=== PATIENT | female | born 1935 | race Caucasian/White ===

== ENCOUNTER 2017-07-27 13:45 | Inpatient (IN) | payer OTHER, SELFPAY ==
[~2017-07-27] VITALS: Ht 162.6 cm; Wt 72.6 kg
--- NOTE | ~2017-07-27 | P ---
[facility] [place] [address] PROCEDURE REPORT Name: JORDY NINO Room #: 445-P ADM IN M.R.#: [id number] Admission: 07/27/17 Attend Phys: Sandra Eid MD Discharge: Date of : 35 Report #: [id number] THIS REPORT FOR: //name// CC: Tye Eid MD DATE OF SERVICE: 08/01/2017 PROCEDURE PERFORMED: Upper endoscopy with biopsies and esophageal dilation. HISTORY OF PRESENT ILLNESS: The patient is an 81-year-old female with nausea, vomiting, intermittent dysphagia. CT scan of the abdomen showing possible duodenitis suggesting a partial gastric outlet obstruction. Plan is for EGD. The patient has been on aspirin on a daily basis. DESCRIPTION OF PROCEDURE: The risks and benefits of the procedure were explained to the patient, those risks including but not limited to bleeding, perforation, the risk of sedation. She understood these risks and gave informed consent. The patient underwent general anesthesia due to a possible gastric outlet obstruction. Next, using a standard [employer] upper endoscope, the scope was placed in the patient's mouth and advanced under direct vision through the esophagus, stomach and into the third and fourth portion of the duodenum. The upper and mid esophagus was normal in appearance. In the distal esophagus at the GE junction, grade B erosive esophagitis was noted. No obvious stricture was seen. There was minimal amount of fluid in the stomach. This was aspirated away. There was no food residual. There was a diffuse mild gastritis with several small ulcerations and erosions within the gastric body. No bleeding. Biopsies were obtained to rule out H. pylori. The pylorus was normal and patent. In the duodenal bulb, there were 2 ulcers, approximately 1 cm in size each. No active bleeding. There were multiple smaller ulcers within the first and second portion of the duodenum. I was able to advance the scope well into the third and even to the fourth portion of the duodenum, which was all normal. There was no evidence of obstruction or stricture within the duodenum. At this point, the scope was then brought back up into the patient's stomach and a Savary guidewire was inserted through the scope, leaving the guidewire in place. Next, a 48-Ugandan Savary dilation of the esophagus was then performed without difficulty. The wire and dilator removed. The scope was reintroduced into the patient's stomach. There was no evidence of mucosal tear after dilation. The scope was then withdrawn and the procedure terminated. The patient tolerated the procedure well. IMPRESSION: 1. Grade B erosive esophagitis. 2. Small gastric ulcers and gastritis. 3. Normal pylorus. [address] [address] PROCEDURE REPORT Name: JORDY NINO Room #: 445-P [facility] IN M.R.#: [id number] Admission: 07/27/17 Attend Phys: Sandra Eid MD Discharge: Date of : 35 Report #: [id number] 4. Duodenal bulb and first and second portion ulcerations. No active bleeding. No evidence of stricture or outlet obstruction. RECOMMENDATIONS: 1. Await biopsy results. 2. Observe status post dilation. 3. We will start daily PPI therapy as well as liquid Carafate at this time. 4. We will hold aspirin at this time. 5. Advance diet as tolerated. Thank you for allowing me to participate in her care. <ELECTRONICALLY SIGNED> By: Stewart Noland MD 08/01/17 1948 0950 1123 Stewart Noland MD /nt
--- NOTE | ~2017-07-27 | HC ---
[facility] [place] [address] CONSULTATION Name: JORDY NINO Room #: 445-P ADM IN M.R.#: [id number] Admission: 07/27/17 Attend Phys: Sandra Eid MD Discharge: Date of : 35 Report #: [id number] THIS REPORT FOR: //name// CC: Tye Eid HISTORY OF PRESENT ILLNESS: This 81-year-old female is admitted with pneumonia, fatigue and confusion. While here, she also complains of some chronic right hip pain. She has a history of previous right total hip arthroplasty and also history of previous lumbar spondylosis. I believe I performed a right total hip in about 2005. I believe I also performed at least 1 spinal decompression procedure, although I do not have those records for review. Apparently, she required some additional spinal decompression and stabilization at another time. I believe she has had hip surgery on the opposite side at some other time as well. At the time of my evaluation, she was accompanied by family including her son. I initially asked the patient about her current symptoms regarding the right hip. Rather immediately, her son took over the conversation and noted that he was quite angry with me with regard to her previous care. He felt she had ongoing pain following her previous surgeries and noted that I was unwilling to give her adequate narcotic medications. Consequently, he felt I was uncaring and arrogant with regard to her previous care and did not wish to continue our discussion or have me involved in any way with her care at this point. He asked me to leave the room immediately and consequently, I did not have any further opportunity to evaluate the patient nor discuss her symptoms. I note from the records that she has had x-rays of the right hip, which show satisfactory alignment and position of the total hip arthroplasty, but some suggestion of mild osteal lucency in the periacetabular region. There is no evidence of fracture. I see nothing in this brief evaluation, which would suggest significant loosening or displacement nor evidence of infection. Nevertheless, if she is having ongoing hip discomfort, evaluation for those potential problems would be appropriate. At this point, however, it is clear that the patient's family prefers to have evaluation and care by another surgeon and have asked me to leave and not be involved. If I can be of any further assistance in offering any suggestions or guidance, please do not hesitate to call me back, but at this point at the family's request, I will leave her case and will not be involved in her care. <ELECTRONICALLY SIGNED> By: Robinson Moore MD 07/30/17 0946 1641 1953 Robinson Moore MD /nt
--- NOTE | ~2017-07-27 | EKG ---
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 : 1935 Requested By: Jerson Cerda Order Number: [id number] MD: Flo Real Measurements Intervals [place] Rate: 102 P: 0 VT: 163 QRS: -92 QRSD: 135 T: 18 QT: 372 QTc: 485 Interpretive Statements Sinus tachycardia Atrial premature complex RBBB and LAFB Compared to ECG 10/23/2016 16:13:20 Atrial premature complex(es) now present Heart rate has increased Electronically Signed On 07-28-2017 8:38:44 [employer] OFFICER by Flo Real [email or web address] <ELECTRONICALLY SIGNED> By: Flo Real MD, [facility] 07/28/17 0838 1503 1503 Flo Real MD, [facility] /EPI
--- NOTE | ~2017-07-27 | S ---
[facility] [address] [address] [place] [address] SURGICAL PATH RPT PROCEDURE Name: JORDY NINO Room #: 445-P DIS IN M.R.#: [id number] Admission: 07/27/17 Date of : 35 Discharge: 08/01/17 Report #: [id number] Path Case #: [id number] PATHOLOGY REPORT COLLECTION DATE: 08/01/2017 RECEIVED DATE: 08/01/2017 SUBMITTING PHYS: Dr. Stewart Noland OTHER PHYS: Dr. Sandra Valera SPECIMEN(S) RECEIVED: A.Duodenal bx B.Bx of gastritis * * * * * * * * * * * * FINAL DIAGNOSIS: A. Small bowel mucosa, duodenum rule out celiac sprue, endoscopic biopsy: - No significant diagnostic abnormalities present. - Negative for villous blunting, or increase in intraepithelial lymphocytes. B. Gastric mucosa, gastritis, rule out H. pylori, endoscopic biopsy: - Moderate reactive gastropathy with focal metaplastic changes. - Negative for atrophy and no definitive intestinal metaplasia present. - Negative for Helicobacter pylori. (IUV:sofiya; 08/02/2017) COMMENT: Well-controlled Helicobacter pylori immunohistochemical stain performed on block A1 - Negative. PATHOLOGIST: Thuy Hector M.D. REPORT ELECTRONICALLY SIGNED BY: Thuy Hector M.D. DATE/TIME: 08/02/2017 15:41 * * * * * * * * * * * * GROSS PATHOLOGY: A. Received in formalin labeled "Amadeo Nino, biopsy of duodenum, rule out celiac sprue" and consists of 3 garvin mucosal biopsies measuring up to 0.4 cm in greatest dimension. The specimen is entirely submitted as A1. B. Received in formalin labeled "Amadeo Nino, BX, gastritis, rule out H. pylori" and consists of 3 garvin mucosal biopsies each averaging 0.3 cm. The specimen is entirely smooth. B1. (DEIRDRE; 08/01/2017) [address] [address] SURGICAL PATH RPT PROCEDURE Name: JORDY NINO Room #: 445-[facility] IN M.R.#: [id number] Admission: 07/27/17 Date of : 35 Discharge: 08/01/17 Report #: [id number] Path Case #: [id number] CLINICAL HISTORY: Dysphagia, gastritis, duodenal ulcer, gastric ulcers INITIAL CPT CODE(S): A; 99522 B; 61134, 37885 Professional services performed by [facility] at [address] , [place] [address] Technical services performed by [facility] at [address] [place] [address], [facility] [place] [address], [place] [address]. [facility] [address] [address] PHONE: [phone] DIRECTOR: Yair Billings M.D. * * * END OF REPORT * * *
--- NOTE | ~2017-07-27 | H ---
[facility] [place] [address] HISTORY AND PHYSICAL Name: JORDY NINO Room #: 445-P ADM IN M.R.#: [id number] Admission: 07/27/17 Attend Phys: Sandra Eid MD Discharge: Date of : 35 Report #: [id number] THIS REPORT FOR: //name// CC: Tye Eid DATE OF SERVICE: 07/27/2017 CHIEF COMPLAINT: Generalized weakness and shortness of breath. HISTORY OF PRESENT ILLNESS: The patient is an 81-year-old female with multiple medical problems, who has had cough, dizziness, shortness of breath, and myalgias during last few days. The patient's condition has been worsening lately, so she presented to the Emergency Room. In the Emergency Room, the patient had chest x-ray, that was negative for acute infiltrates. D-dimer was slightly elevated, that resulted in further evaluation. CT angiography showed right upper lobe infiltrate, but was negative for pulmonary embolism. The patient is being admitted for community-acquired pneumonia. PAST MEDICAL HISTORY: Chronic kidney disease stage 3, hypothyroidism, arthritis, status post bilateral hip replacement, history of CVA, history of colon cancer, history of uterine cancer, history of paroxysmal atrial fibrillation not on anticoagulation, diabetes mellitus type 2, hypertension, peripheral neuropathy, chronic back pain. CURRENT MEDICATIONS: Reviewed and documented in the patient's chart. In brief, the patient is on aspirin, iron sulfate, hydrocodone, levothyroxine, Norflex, Zocor, Janumet and VESIcare. FAMILY HISTORY: Reviewed and not pertinent to the patient's current condition. SOCIAL HISTORY: The patient does not smoke cigarettes and does not drink alcohol. REVIEW OF SYSTEMS: As above in HPI section, all others negative. PHYSICAL EXAMINATION: GENERAL: The patient is an elderly female who is in no apparent distress. She is alert and oriented x 3. VITAL SIGNS: Blood pressure is 136/100, heart rate is 103, respiration is 17, temperature is 98.1. HEENT: Pupils are equal. Eye movements are normal. The patient has anicteric sclerae. NECK: Supple. Thyromegaly is not appreciated. RESPIRATORY: Chest moves symmetrically with breathing. The patient has coarse respiratory sounds of the right upper lobe. Left lobe is slightly diminished. [address] [address] HISTORY AND PHYSICAL Name: JORDY NINO Room #: [address] [place] [address] IN M.R.#: [id number] Admission: 07/27/17 Attend Phys: Sandra Eid MD Discharge: Date of : 35 Report #: [id number] No wheezes appreciated. CARDIOVASCULAR: The patient has regular rhythm and rate. She has no murmurs, gallops or rubs. GASTROINTESTINAL: The patient has soft abdomen. She has no abdominal distention. Abdomen is nontender, with present bowel sounds. MUSCULOSKELETAL: There is no edema, cyanosis or clubbing. Joint deformities are not appreciated. NEUROLOGIC: The patient is alert and oriented x 3. Her examination is nonfocal. SKIN: Reveals no skin lesions. Skin is dry and warm. LABORATORY DATA: Basic metabolic profile, potassium is slightly high at 5.6. Other electrolytes are essentially normal. Creatinine is 1.4, which is at baseline. BUN is 40. GFR is 36. Troponin is normal. Liver function tests are normal. On CBC, white count is 5.6. Hemoglobin is 11.4, which is chronically low and at baseline. Hematocrit is 34.9. Platelets are normal. ASSESSMENT AND PLAN: 1. Community-acquired pneumonia, involving right upper lobe based on CT angiography of the chest. The patient is started on Rocephin and Zithromax, as well as breathing treatments and symptomatic treatment for cough. 2. Generalized weakness, muscle aches, and nausea, likely related to current illness. Will be treated symptomatically. Continue IV fluids. 3. Diabetes mellitus type 2. Discontinue metformin, as GFR is low, and close to 30. Start Tradjenta. Continue sliding scale insulin. 4. Hypothyroidism. Continue Synthroid, unchanged. 5. Deep venous thrombosis prophylaxis. Use subcutaneous Lovenox. 6. Code status. The patient is full code. <ELECTRONICALLY SIGNED> By: Sandra Eid MD 07/28/17 1604 1833 1844 Sandra Eid MD /nt
[~2017-07-27 13:45] MED LIST: ACETAMINOPHEN325 M1 PO; ADULT LOW DOSE81 MG PO; AMITIZA 24 MCG24 MC1 PO; ARTIFICIAL TEAR15 M6 OPHTHALMIC; ASA5UEC PO; ATIVAN1 MG PO; CICLOPIROX15 GM TP; CIPRO250 M1 PO; CIPROFLOXACIN500 M1 PO; COLACE 100 MG100 MG PO; DOCUPRENE100 MG; DOXYCYCLINE 10100 MG PO; GLIPIZIDE ER10 MG PO; GLUCOPHAGE XR500 MG PO; GLUMETZA500 PO; GUAIFEN-CODEIN120 ML PO; HYDROCODON-ACE1 EA11 PO; HYDROCODON-ACE1 EAC1 PO; HYDROCODON-ACE1 EACH PO; HYDROCODONE-AP1 EAC6 PO; IRON325 PO; JANUMET 50-1,01 EACH PO; JANUMET XR 1001 EACH PO; LASIX 40 MG TAB40 M2 PO; LEVOTHROID25 MCG PO; LEVOTHYROXIN0.025 MG PO; LISINOPRIL PO; LISINOPRIL20 MG PO; LISINOPRIL40 MG PO; LUNESTA2 MG PO; MEDROL4 MG PO; METFORMIN PO; MULTIVITAMINS PO; NAPROSYN500 MG PO; NASONEX17 GM NASAL; NORFLEX100 MG PO; PLAVIX 75 MG TA75 MG OR; ROBAXIN 750 MG750 M1; ROBAXIN 750 MG750 M1 PO; ULTRAM 50MG TAB50 MG PO; VENTOLIN HFA 1818 GM INH; VESICARE10 M1 PO; VITAMIN A10000 UNI3 PO; VITAMINC500 PO; ZESTORETIC 20-1 EAC3 PO; ZOCOR40 MG PO; ZOFRAN ODT4 MG PO
[2017-07-27 13:49] VITALS: BP 152/74
[2017-07-27 14:21] LABS: ABSOLUTE NEUTROPHILS 4.5 thou/uL (1.4-8.2); BASOPHILS 0.1 % (0.0-2.0); EOSINOPHILS 0.5 % (0.0-3.0); HEMATOCRIT 34.9 % (37.0-47.0); HEMOGLOBIN 11.4 gm/dL (12.0-15.0); LYMPHOCYTES 12.4 % (24.0-44.0); MCH 31.4 pg (26.0-34.0); MCHC 32.6 g/dL (28.0-37.0); MCV 96.2 fL (80.0-100.0); MONOCYTES 7.6 % (1.0-8.0); PLATELET COUNT 178 thou/uL (150-400); POLYS 79.4 % (36.0-66.0); RBC 3.63 mil/uL (4.20-5.00); RDW 14.3 % (10.5-14.5); WBC 5.6 thou/uL (4.0-11.0)
[2017-07-27 14:35] LABS: ANION GAP 10 mmol/L (7-16); BUN 40 mg/dL (7-18); CALCIUM 8.9 mg/dL (8.5-10.1); CHLORIDE 107 mmol/L (98-107); CO2 22 mmol/L (21-32); CREATININE 1.4 mg/dL (0.6-1.0); GLUCOSE 147 mg/dL (74-106); POTASSIUM 5.6 mmol/L (3.5-5.1); SODIUM 139 mmol/L (136-145)
[2017-07-27 14:37] LABS: TROPONIN-I < 0.04 ng/mL (<0.06)
[2017-07-27 15:48] LABS: APTT 32.4 Seconds (24.5-32.8); PROTIME 10.4 Seconds (9.3-11.4)
[2017-07-27 17:56] VITALS: BP 143/86
[2017-07-27 18:43] VITALS: BP 167/78
[2017-07-27 19:14] VITALS: BP 160/87
[2017-07-28 00:47] VITALS: BP 141/76
[2017-07-28 04:22] VITALS: BP 139/79
[2017-07-28 07:23] VITALS: BP 154/65
[2017-07-28 09:24] LABS: HEMATOCRIT 28.5 % (37.0-47.0); MCV 94.2 fL (80.0-100.0); PLATELET COUNT 163 thou/uL (150-400); RBC 3.03 mil/uL (4.20-5.00); RDW 13.9 % (10.5-14.5); WBC 5.6 thou/uL (4.0-11.0)
[2017-07-28 09:39] LABS: CALCIUM 8.3 mg/dL (8.5-10.1); CREATININE 1.1 mg/dL (0.6-1.0)
[2017-07-28 10:57] LABS: ABSOLUTE NEUTROPHILS 4.1 thou/uL (1.4-8.2); METAMYELOCYTES 1 %
[2017-07-28 10:58] LABS: ANISOCYTOSIS 1+; OVALOCYTES FEW
[2017-07-28 15:30] VITALS: BP 145/46
[2017-07-28 19:16] LABS: % SATURATION 39 % (20-39); ALBUMIN 2.4 g/dL (3.4-5.0); ANION GAP 12 mmol/L (7-16); BUN 29 mg/dL (7-18); CALCIUM 8.2 mg/dL (8.5-10.1); CHLORIDE 109 mmol/L (98-107); CHOLESTEROL 128 mg/dL (<200); CO2 23 mmol/L (21-32); CREATININE 1.2 mg/dL (0.6-1.0); GLUCOSE 151 mg/dL (74-106); HDL CHOLESTEROL 43 mg/dL (>40); IRON 68 ug/dL (50-170); LDL CHOLESTEROL 64 mg/dL (<100); POTASSIUM 4.6 mmol/L (3.5-5.1); SGOT 17 U/L (15-37); SGPT 17 U/L (30-65); SODIUM 144 mmol/L (136-145); TIBC 173 ug/dL (250-450); TOTAL BILIRUBIN 0.2 mg/dL (<0.1-1.0); TRIGLYCERIDE 105 mg/dL (<150); VLDL 21 mg/dL (<40)
[2017-07-28 19:40] VITALS: BP 159/88
[2017-07-28 19:47] LABS: TSH 0.646 uIU/mL (0.358-3.740)
[2017-07-29 01:09] LABS: GLYCOHEMOGLOBIN (HGB A1C) 6.2 % (4.8-5.6)
[2017-07-29 03:45] VITALS: BP 176/72
[2017-07-29 05:19] LABS: CALCIUM 8.5 mg/dL (8.5-10.1); CREATININE 1.1 mg/dL (0.6-1.0); POTASSIUM 4.5 mmol/L (3.5-5.1)
[2017-07-29 08:00] VITALS: BP 164/82
[2017-07-29 16:00] VITALS: BP 160/82
[2017-07-29 19:32] VITALS: BP 156/75
[2017-07-30 01:55] LABS: URINE BILIRUBIN NEGATIVE (Negative); URINE BLOOD TRACE (Negative); URINE CLARITY CLEAR; URINE COLOR YELLOW; URINE GLUCOSE-RANDOM* NEGATIVE (Negative); URINE KETONES 1+ (Negative); URINE LEUKOCYTES-REFLEX NEGATIVE (Negative); URINE NITRITE-REFLEX NEGATIVE (Negative); URINE PROTEIN (DIPSTICK) TRACE (Negative); URINE UROBILINOGEN 0.2 E.U./dl (0.2-1.0)
[2017-07-30 05:04] VITALS: BP 147/69
[2017-07-30 08:07] VITALS: BP 156/72
[2017-07-30 16:28] VITALS: BP 156/72
[2017-07-30 19:48] VITALS: BP 125/67
[2017-07-31 03:30] VITALS: BP 132/54
[2017-07-31 04:46] LABS: HEMOGLOBIN 9.4 gm/dL (12.0-15.0); MCH 31.5 pg (26.0-34.0); MCHC 33.4 g/dL (28.0-37.0); MCV 94.3 fL (80.0-100.0); PLATELET COUNT 202 thou/uL (150-400); RBC 2.97 mil/uL (4.20-5.00); RDW 14.1 % (10.5-14.5)
[2017-07-31 05:02] LABS: CALCIUM 8.3 mg/dL (8.5-10.1); POTASSIUM 3.8 mmol/L (3.5-5.1)
[2017-07-31 05:27] LABS: ABSOLUTE NEUTROPHILS 4.1 thou/uL (1.4-8.2); ANISOCYTOSIS SLIGHT; MYELOCYTES 2 %
[2017-07-31 07:39] VITALS: BP 164/84
[2017-07-31 15:56] VITALS: BP 141/62
[2017-07-31 19:17] VITALS: BP 161/72
[2017-08-01 04:25] VITALS: BP 171/65
[2017-08-01 06:32] LABS: HEMATOCRIT 29.4 % (37.0-47.0); HEMOGLOBIN 9.6 gm/dL (12.0-15.0); MCH 31.1 pg (26.0-34.0); MCHC 32.8 g/dL (28.0-37.0); MCV 94.8 fL (80.0-100.0); PLATELET COUNT 237 thou/uL (150-400); RDW 13.8 % (10.5-14.5); WBC 8.3 thou/uL (4.0-11.0)
[2017-08-01 06:37] LABS: CALCIUM 8.1 mg/dL (8.5-10.1); POTASSIUM 3.9 mmol/L (3.5-5.1)
[2017-08-01 08:00] VITALS: BP 169/75
[2017-08-01 08:02] LABS: ABSOLUTE NEUTROPHILS 6.9 thou/uL (1.4-8.2); ANISOCYTOSIS SLIGHT; METAMYELOCYTES 1 %; POIKILOCYTOSIS SLIGHT
[2017-08-01 14:34] VITALS: BP 169/75
[2017-08-01] MEDS ORDERED: AZITHROMYCIN 2250 MG PO (15:44)
== END 2017-08-01 19:49 | disposition home health service (06) | DRG 871 ==
LOC: ER 13:45 → 4S 17:16 → EROBS 17:16 → 4S 18:43
PROVIDERS: Emergency Medicine; Internal Medicine; Internal Medicine Endocrinology, Diabetes & Metabolism; Nurse Practitioner; Registered Nurse
PROC: 0DB98ZX Excision of Duodenum, Via Natural or Artificial Opening Endoscopic, Diagnostic (ICD-10-PCS; principal; 2017-08-01)
PROC: 0DB68ZX Excision of Stomach, Via Natural or Artificial Opening Endoscopic, Diagnostic (ICD-10-PCS; principal; 2017-08-01)
PROC: 0D758ZZ Dilation of Esophagus, Via Natural or Artificial Opening Endoscopic (ICD-10-PCS; principal; 2017-08-01)
DX: A41.9 Sepsis, unspecified organism (principal); J18.9 Pneumonia, unspecified organism; K22.10 Ulcer of esophagus without bleeding; K29.70 Gastritis, unspecified, without bleeding; E78.00 Pure hypercholesterolemia, unspecified; E11.22 Type 2 diabetes mellitus with diabetic chronic kidney disease; N18.3 Chronic kidney disease, stage 3 (moderate); M19.90 Unspecified osteoarthritis, unspecified site; I12.9 Hypertensive chronic kidney disease with stage 1 through stage 4 chronic kidney disease, or unspecified chronic kidney disease; I48.0 Paroxysmal atrial fibrillation; K21.0 Gastro-esophageal reflux disease with esophagitis; K31.84 Gastroparesis; E11.43 Type 2 diabetes mellitus with diabetic autonomic (poly)neuropathy; K29.80 Duodenitis without bleeding; K31.9 Disease of stomach and duodenum, unspecified; D50.9 Iron deficiency anemia, unspecified; K25.9 Gastric ulcer, unspecified as acute or chronic, without hemorrhage or perforation; M25.551 Pain in right hip; M54.9 Dorsalgia, unspecified; J40 Bronchitis, not specified as acute or chronic; G89.29 Other chronic pain; K26.9 Duodenal ulcer, unspecified as acute or chronic, without hemorrhage or perforation; E03.9 Hypothyroidism, unspecified; Z96.643 Presence of artificial hip joint, bilateral; Z86.73 Personal history of transient ischemic attack (TIA), and cerebral infarction without residual deficits; Z85.038 Personal history of other malignant neoplasm of large intestine; Z85.42 Personal history of malignant neoplasm of other parts of uterus; Z91.81 History of falling; Z85.3 Personal history of malignant neoplasm of breast; Z90.13 Acquired absence of bilateral breasts and nipples; Z90.49 Acquired absence of other specified parts of digestive tract; Z90.710 Acquired absence of both cervix and uterus; Z98.1 Arthrodesis status; Z79.82 Long term (current) use of aspirin; Z79.899 Other long term (current) drug therapy; Z88.2 Allergy status to sulfonamides; Z88.8 Allergy status to other drugs, medicaments and biological substances; Z91.048 Other nonmedicinal substance allergy status
CPT/HCPCS: 10100; 62110; 62900; 70005

== ENCOUNTER 2020-02-29 04:56 | Inpatient (IN) | payer OTHER ==
[2020-02-29] VITALS (42 sets, daily range): BP systolic 85–143; BP diastolic 30–72
[~2020-02-29] VITALS: Ht 157.5 cm; Wt 72.4 kg
[~2020-02-29 04:56] MED LIST changes: +AZITHROMYCIN 2250 MG PO; -HYDROCODONE-AP1 EAC6 PO; +NORCO 10-325 T1 EAC1 PO
[2020-02-29 05:33] LABS: ABSOLUTE NEUTROPHILS 6.1 thou/uL (1.4-8.2); BASOPHILS 0.3 % (0.0-2.0); EOSINOPHILS 2.2 % (0.0-3.0); HEMATOCRIT 32.3 % (37.0-47.0); HEMOGLOBIN 10.4 gm/dL (12.0-15.0); LYMPHOCYTES 11.5 % (24.0-44.0); MCH 33.3 pg (26.0-34.0); MCHC 32.1 g/dL (28.0-37.0); MCV 103.7 fL (80.0-100.0); MONOCYTES 11.5 % (1.0-8.0); PLATELET COUNT 223 thou/uL (150-400); POLYS 74.5 % (36.0-66.0); RBC 3.11 mil/uL (4.20-5.00); RDW 13.2 % (10.5-14.5); WBC 8.2 thou/uL (4.0-11.0)
[2020-02-29 05:46] LABS: ANION GAP 16 mmol/L (7-16); BUN 62 mg/dL (7-18); CALCIUM 8.8 mg/dL (8.5-10.1); CHLORIDE 110 mmol/L (98-107); CO2 14 mmol/L (21-32); CREATININE 3.7 mg/dL (0.6-1.0); GLUCOSE 185 mg/dL (74-106); POTASSIUM 5.5 mmol/L (3.5-5.1); SODIUM 140 mmol/L (136-145)
[2020-02-29 05:51] LABS: TROPONIN-I <0.06 ng/mL (<0.06)
[2020-02-29 05:54] LABS: BE(vivo) -15.4 mmol/L (-2 to +3); HCO3 12.8 mmol/L (22.0-26.0); PO2 189.2 mmHg (80.0-100.0); pH 7.134 (7.360-7.450); sO2 98.9 % (92.0-98.0)
[2020-02-29 06:23] LABS: URINE BILIRUBIN NEGATIVE (Negative); URINE BLOOD NEGATIVE (Negative); URINE COLOR YELLOW; URINE GLUCOSE-RANDOM* NEGATIVE (Negative); URINE KETONES NEGATIVE (Negative); URINE LEUKOCYTES-REFLEX TRACE (Negative); URINE NITRITE-REFLEX NEGATIVE (Negative); URINE PROTEIN (DIPSTICK) 1+ (Negative); URINE UROBILINOGEN 0.2 E.U./dl (0.2-1.0)
[2020-02-29 06:31] LABS: URINE CLARITY CLOUDY
--- NOTE | 2020-02-29 06:34 | NUR ---
no medication list available. talked with dpo adryan coppola, he does not know med list or allergies, he states that his sister in law would know but he does not have her number on hand, he will call back with number to his sister in law.
[2020-02-29 07:06] LABS: URINE WBC-REFLEX 6-15 Few /HPF (0-5)
[2020-02-29 07:07] LABS: BACTERIA-REFLEX >30 Many /HPF (None Seen)
[2020-02-29 07:08] LABS: CASTS None Seen /LPF (None Seen); CRYSTALS None Seen /LPF (None Seen); SQUAMOUS 4-10 Moderate /LPF (0-3); URINE RBC None Seen /HPF (0-2)
[2020-02-29] MEDS ORDERED: PROTONIX40 M4 PO (07:15)
[2020-02-29] MEDS ORDERED: LISINOPRIL40 MG PO (07:16)
[2020-02-29] MEDS ORDERED: JANUMET XR 1001 EACH PO (07:17)
[2020-02-29] MEDS ORDERED: MYRBETRIQ25 MG PO (07:18)
--- NOTE | 2020-02-29 07:45 | EKG ---
[facility] [place] [address] ELECTROCARDIOGRAM REPORT Name: JORDY NINO Room #: [facility].#: [id number] Admission: 02/29/20 Attend Phys: Discharge: Date of : 35 Report #: [id number] THIS REPORT FOR: cc: [facility] - Clinic physician unknown [facility] - Clinic physician unknown Sean Shah MD [facility] ~ THIS REPORT FOR: //name// [facility] ED Test Date: 2020-02-29 Test Time: 05:08:57 Pat Name: JORDY NINO Department: Room: Gender: F Riveter Pneumatic: DREW : 1935 Requested By: Ankur Goel Order Number: [id number] MD: Sean Shah Measurements Intervals [place] Rate: 102 P: -39 IN: 153 QRS: -70 QRSD: 141 T: 18 QT: 371 QTc: 484 Interpretive Statements Sinus tachycardia RBBB and LAFB Compared to ECG 07/27/2017 15:03:52 Atrial premature complex(es) no longer present Electronically Signed On 02-29-2020 7:44:53 CDT by Sean Shah [email or web address] <ELECTRONICALLY SIGNED> By: Sean Shah MD, FACC 02/29/20 0744 0508 0508 Sean Shah MD, [facility] /EPI
--- NOTE | 2020-02-29 09:36 | NUR ---
PT BECAME AGITATED AND HITTING THIS RN AND GLORIA RN. ATTEMPTED TO RE-DIRECT PATIENT WITHOUT SUCCESS. SHE THEN GRABBED THIS RN BY THE HAIR. SOFT RESTRAINTS APPLIED AND NOTIFIED.
--- NOTE | 2020-02-29 11:00 | NUR ---
PT ARRIVED TO ROOM VIA CART FROM ED. PT TRANSFERRD TO ICU. PT HAS BEEN INCONTINENT OF STOOL. PT IS NOT RESPONDING AT THIS TIME. EYES OPEN. NONVERBAL. NO WOUNDS NOTED ON ASSESSMENT. PT 99% ON RA. LUNGS CLEAR BILATERALLY. SINUS TACH ON THE MONITOR. TRACE EDEMA TO BLE. SODIUM BICARB INFUSING TO LFA IV. ABX BROUGHT FROM ED TO BE GIVEN. TALKED WITH SON GUI ON THE PHONE TO COMPLETE THE ADMISSION HISTORY. STATES PT LIKES TO GO BY [facility]. WHEN I CALLED HER [facility] SHE RESPONDED TO ME. PT IS CONFUSED, SOFT SPOKEN. PHONE TAKEN IN ROOM SO SON COULD TALK WITH PATIENT.
--- NOTE | 2020-02-29 15:01 | NUR ---
PATIENT REFUSED SWALLOW EVALUATION. FORCEFULLY SPIT LIQUID FROM ORAL CAVITY. REFUSED COGNITIVE EVALUATION. REFUSED TO ANSWER EGOCENTRIC QUESTIONS INCLUDING ORIENTATION QUESTIONS.
--- NOTE | 2020-02-29 19:11 | NUR ---
TALKED WITH SON GUI ON THE PHONE UPDATED ON PT. TOLD HIM COVID TEST WAS NEGATIVE AND THAT WHEN PT MOVES OUT OF THIS AREA SHE IS ABLE TO HAVE VISITORS. HE STATES HIS UNDERSTANDING.
[2020-02-29 22:03] LABS: URINE CREATININE-RANDOM* 80.6 mg/dL
[2020-03-01] VITALS (31 sets, daily range): BP systolic 105–194; BP diastolic 49–128
[2020-03-01 04:20] LABS: ALBUMIN 2.1 g/dL (3.4-5.0); CALCIUM 7.8 mg/dL (8.5-10.1); PHOSPHORUS 2.5 mg/dL (2.5-4.9)
[2020-03-01 04:24] LABS: CREATININE 2.4 mg/dL (0.6-1.0); POTASSIUM 4.2 mmol/L (3.5-5.1)
--- NOTE | 2020-03-01 06:50 | NUR ---
PATIENT PLEASANTLY CONFUSED, ATTEMPTED TO VOID BUT WAS UNABLE, VERY CONFUSED AND UNABLE TO COMPREHEND INSTRUCTIONS. LEE CATHETER PLACED WIH 550CC OF CLOUDY, SEDIMENT URINE, FOUL SMELLING. PATIENT STATED RELIEF. RESTING QUIETLY FOR MOST OF SHIFT
--- NOTE | 2020-03-01 09:02 | NUR ---
0842 PATIENT BECAME AGGRESSIVE WHEN TRYING TO CLIMB OUT OF BED. PATIENT STATES THAT SHE WALKS AND DRIVES AND THAT I WAS RESTRAINING HER BY HAVING HER HOOKED UP TO THE MONITOR. PATIENT ALSO STATED THAT THE STAFF WAS GOING TO "BEAT ME UP". ATTEMPTED TO REORIENT PATIENT, IT WAS UNSUCCESSFUL SHE WOULD FORGET VERY QUICKLY ABOUT OUR DISCUSSIONS.
--- NOTE | 2020-03-01 09:27 | NUR ---
0927 PATIENT THREATENING TO "BUST ME IN THE FACE"
[2020-03-02 05:16] LABS: HEMATOCRIT 25.4 % (37.0-47.0); HEMOGLOBIN 8.5 gm/dL (12.0-15.0); MCH 32.9 pg (26.0-34.0); MCHC 33.5 g/dL (28.0-37.0); RBC 2.59 mil/uL (4.20-5.00); RDW 12.3 % (10.5-14.5); WBC 5.6 thou/uL (4.0-11.0)
[2020-03-02 05:20] LABS: MCV 98.3 fL (80.0-100.0)
[2020-03-02 05:29] LABS: ALBUMIN 2.4 g/dL (3.4-5.0); CALCIUM 7.5 mg/dL (8.5-10.1); POTASSIUM 3.8 mmol/L (3.5-5.1)
[2020-03-02 05:35] LABS: CREATININE 1.4 mg/dL (0.6-1.0)
[2020-03-02 08:09] VITALS: BP 152/63
[2020-03-02 17:05] VITALS: BP 148/82
--- NOTE | 2020-03-02 17:40 | NUR ---
ASSUMED PT CARE THIS AM. PT VITAL SIGNS STABLE, A&O TO SELF. CONFUSION AROUND SITUATION, DATE, AND LOCATION. PT UP TO COMMODE, BUNDLE BRANCH BLOCK ON TELE. PT TURNS INDEPENDENTLY, CALLS WHEN NEEDED. IV IN RIGHT FOREARM PATENT. NO FLUIDS RUNNING, LEFT ARM EDEMA PRESENT. PT DPOA (SON) CONTACTED REGARDING UPDATE ON PT STATUS. WILL CONTINUE TO MONITOR.
[2020-03-02 20:15] VITALS: BP 150/72
[2020-03-03 05:38] LABS: HEMATOCRIT 25.4 % (37.0-47.0); HEMOGLOBIN 8.7 gm/dL (12.0-15.0); MCH 33.6 pg (26.0-34.0); MCHC 34.1 g/dL (28.0-37.0); MCV 98.4 fL (80.0-100.0); RBC 2.58 mil/uL (4.20-5.00); RDW 12.4 % (10.5-14.5); WBC 6.1 thou/uL (4.0-11.0)
--- NOTE | 2020-03-03 05:57 | NUR ---
PT IS ABLE TO ANSWER SOME ORIENTATION QUESTIONS BUT IS VERY FORGETFUL. SHE BECAME RESTLESS AND CONFUSED AT TIMES DURING THE NIGHT. C/O HEADACHE. TYLENOL GIVEN FOR PAIN. UP W/ ASSIST TO BSC MULTIPLE TIMES DURING THE NIGHT. SHE C/O FEELING CONSTIPATED. PT WAS ENCOURAGED TO DRINK SOME PRUNE JUICE. SHE WAS THEN ABLE TO HAVE A BOWEL MOVEMENT THIS MORNING. FALL PRECAUTIONS IN PLACE. PROGRESSING SLOWLY TOWARD POC GOALS.
[2020-03-03 06:00] LABS: ALBUMIN 2.1 g/dL (3.4-5.0); CALCIUM 7.7 mg/dL (8.5-10.1); CREATININE 1.6 mg/dL (0.6-1.0); PHOSPHORUS 2.5 mg/dL (2.5-4.9); POTASSIUM 3.6 mmol/L (3.5-5.1)
[2020-03-03 07:51] VITALS: BP 182/109
[2020-03-03] MEDS ORDERED: CARDIZEM CD 18180 M3 PO (12:47)
[2020-03-03] MEDS ORDERED: GLYBURIDE 5 MG T5 M1 PO (12:47)
[2020-03-03] MEDS ORDERED: SLOW-MAG64 M1 PO (12:47)
[2020-03-03] MEDS ORDERED: PEPCID20 MG PO (12:47)
[2020-03-03] MEDS ORDERED: SEROQUEL 25 MG25 M1 PO (12:47)
[2020-03-03] MEDS ORDERED: CEFUROXIME250 MG PO (12:47)
[2020-03-03] MEDS ORDERED: ACETAMINOPHEN650 M5 PO (12:47)
[2020-03-03 15:18] VITALS: BP 168/103
[2020-03-03 15:28] VITALS: BP 168/93
--- NOTE | 2020-03-03 15:33 | NUR ---
FAXED REFERRAL TO [facility] SPOKE WITH LICHA IN INTAKE SHE RECEIVED REFERRAL AND IS OON WITH INSURANCE. FAXED REFERRAL TO [facility] SPOKE WITH GAIL IN INTAKE SHE RECEIVED REFERRAL AND WILL ACCEPT. FAXED DC ORDERS/SUMMARY RECEIVED CONFIRMATION AND THEY WILL CALL PT TO ARRANGE VISITS.
--- NOTE | 2020-03-03 15:33 | NUR ---
PT ADMITTED RELATED TO ACUTE RENAL FAILURE. CM REVIEWED CHART AND SPOKE WITH CARE TEAM. CM CALLED AND SPOKE WITH PT OVER THE PHONE THIS AM. PT APPREARED TO BE A&O X4. CM ROLE INTRODUCED. PT INDICATED SHE LIVES IN A HOUSE AND THAT HER SON AND DIL RESIDE WITH HER. SHE INDICATED THERE AT 2 STEPS IF SHE ENTERES HOUSE THROUGH THE GARAGE AND NONE SHE USES INSIDE. PT INDIATED SHE HAD A FWW FOR HOME USE AND THAT SHE AND FAMILY COMPLETE IADLS AND SOME ASSIST WITH MEAL PREP. PT INIDCATED SHE WASN'T AGREEABLE TO GOING TO 5N OR SNF BUT THAT SHE WAS RECEPTIVE TO HH SERVICES. CARE TEAM INDICATED PT IS MEDICALLY STABLE TO DC HOME WITH HH SERVICES THIS DAY. [facility] CAN ACCEPT PT FOR PT, OT, NURSING HH SERVICES. PT'S DIL TO PROVIDE TRANSPORT HOME THIS DAY. NO OTHER CM INTERVENTION INDICATED. CASE CLOSED.
--- NOTE | 2020-03-03 17:59 | NUR ---
ASSUMED PT CARE THIS AM. PT BLOOD PRESSURE HIGH, TREATED WITH MEDICATION PER EMAR. PT ALERT TO SELF, SITUATION. CONFUSION REGARDING PLACE AND DAY. PT IV PATENT. PT UP TO COMMODE FOR VOID AND BM. BLOOD SUGARS STABLE. PT ON TELE, RHYTHM RECORDED. PT DISCHARGED TO HOME WITH HOME HEALTH, SON (DPOA) RECEIVED DISCHARGE INSTRUCTIONS WELL.
--- NOTE | 2020-03-05 16:08 | NUR ---
WAS NOTIFIED ON 03/04 FROM GAIL AT [facility] THAT THEY ARE OON WITH PT'S INSURANCE. ALEXEI RN IS CALLING PT'S INSURANCE TO SEE IF THEY HAVE A LIST OF HH IN NETWORK WITH INSURANCE.
--- NOTE | 2020-03-05 17:01 | NUR ---
ALEXEI RN SPOKE WITH PT'S INSURANCE AND THEY GAVE 5 HH AGENCIES THAT TAKE PT'S INSURANCE. FAXED REFERRAL TO [facility] THEY ARE AT CAPACITY WITH STAFFING. FAXED REFERRAL TO [facility] THEY ARE AT CAPACITY ALSO. FAXED REFERRAL TO [facility] RECEIVED CONFIRMATION AND SPOKE WITH CARMEN IN INTAKE SHE WILL REVIEW AND WILL F/U WITH ME IN THE AM. DC ORDERS/SUMMARY INCLUDED WITH REFERRAL.
--- NOTE | 2020-03-07 16:46 | NUR ---
RECEIVED WORD BACK FROM [facility] THEAT THEY COULD NOT ACCEPT DUE TO CAPACITY. CALLED [facility]ISSA [facility] TO ASK FOR MORE HH OPTIONS & SHE GAVE DAY BY DAY WHICH IS OWNED NOW BY [facility] WHICH I CALLED AGAIN & THE ARE STILL AT CAPACITY. [facility] ONLY DOES MEDICAID, [facility] ONLY DOES PVT DUTY, [facility] DOES NOT ACCEPT THE INSURANCE. MELISSA WILL CONTACT SOMEONE FROM [facility] & ASK IF THEY WOULD ALLOW A SONGLE CASE AGREEMENT WITH AN AGENCY. WE HAVE TRIED ALL AVAILABLE OPTIONS THAT [facility] HAS PROVIDED TO US & ALL AGENCIES ARE EITHER AT CAPACITY, NO LONGER IN BUSINESS OR NO LONGER PROVIDE HH SERVICES. AWAITING ON DIRECTION FROM [facility] ON HOW TO ASSIST THEIR MEMBER WITH RECEIVING HOME HEALTH SERVICES.
== END 2020-03-03 17:33 | disposition home health service (06) | DRG 871 ==
LOC: ER 04:56 → 4W 10:21 → EROBS 10:21 → ICU 10:54 → 4W 03-01 18:08
PROVIDERS: Emergency Medicine; Hospitalist; Internal Medicine Nephrology; ADMIT Internal Medicine; ATTEND Internal Medicine
DX: A41.9 Sepsis, unspecified organism (principal); G93.41 Metabolic encephalopathy; E43 Unspecified severe protein-calorie malnutrition; N17.0 Acute kidney failure with tubular necrosis; E87.2 Acidosis; N39.0 Urinary tract infection, site not specified; F01.51 Vascular dementia, unspecified severity, with behavioral disturbance; I48.0 Paroxysmal atrial fibrillation; I10 Essential (primary) hypertension; T38.3X5A Adverse effect of insulin and oral hypoglycemic [antidiabetic] drugs, initial encounter; E78.5 Hyperlipidemia, unspecified; E87.5 Hyperkalemia; Z96.643 Presence of artificial hip joint, bilateral; E78.00 Pure hypercholesterolemia, unspecified; E11.42 Type 2 diabetes mellitus with diabetic polyneuropathy; R53.81 Other malaise; E83.42 Hypomagnesemia; N32.81 Overactive bladder; E03.9 Hypothyroidism, unspecified; E53.8 Deficiency of other specified B group vitamins; G47.00 Insomnia, unspecified; R63.4 Abnormal weight loss; Z20.828 Contact with and (suspected) exposure to other viral communicable diseases; Y92.89 Other specified places as the place of occurrence of the external cause; Z79.01 Long term (current) use of anticoagulants; Z88.8 Allergy status to other drugs, medicaments and biological substances; Z90.49 Acquired absence of other specified parts of digestive tract; Z86.73 Personal history of transient ischemic attack (TIA), and cerebral infarction without residual deficits; Z98.42 Cataract extraction status, left eye; Z98.41 Cataract extraction status, right eye; Z90.10 Acquired absence of unspecified breast and nipple; Z79.899 Other long term (current) drug therapy; Z88.5 Allergy status to narcotic agent; Z88.2 Allergy status to sulfonamides; Z91.040 Latex allergy status; Z79.84 Long term (current) use of oral hypoglycemic drugs; Z98.1 Arthrodesis status; Z90.710 Acquired absence of both cervix and uterus; Z68.29 Body mass index [BMI] 29.0-29.9, adult
CPT/HCPCS: 10045; 10078